=== PATIENT | male | born 1940 | race Caucasian/White ===

== ENCOUNTER 2018-08-05 09:16 | Inpatient (IN) | payer MEDICARE, OTHER ==
[~2018-08-05] VITALS: Ht 172.7 cm; Wt 73.6 kg
[2018-08-05] MEDS ORDERED: albuterol 2.5 MG/3 ML nebule NEB ONE (09:30)
[2018-08-05] MEDS ORDERED: methylPREDNISolone sod succ 125mg/2ml vial IV ONE (09:30)
[2018-08-05] MEDS ORDERED: ipratropium/albuterol 3ml nebule NEB ONE (09:30)
[2018-08-05 10:20] LABS: BASOPHILS % (AUTO) 0.3 % (0-1); EOSINOPHILS % (AUTO) 0.2 % (0-6); HEMATOCRIT 41.6 % (42.0-52.0); HEMOGLOBIN 13.6 g/dl (14.0-17.9); LYMPHOCYTES # (AUTO) 0.5 X10'3 (1.1-4.8); LYMPHOCYTES % (AUTO) 3.9 % (21-51); MEAN CORPUSCULAR HEMOGLOBIN 29.9 PG (27.0-31.0); MEAN CORPUSCULAR HGB CONC 32.6 g/dL (33.0-36.5); MEAN CORPUSCULAR VOLUME 91.8 FL (78-98); MONOCYTES # (AUTO) 1.7 X10'3 (0-0.9); MONOCYTES % (AUTO) 14.2 % (2-12); NEUTROPHILS # (AUTO) 9.8 X10'3 (1.8-7.7); NEUTROPHILS % (AUTO) 81.4 % (42-75); PLATELET COUNT 190 X10'3 (140-440); RED BLOOD COUNT 4.53 X10'6 (4.70-6.10); RED CELL DISTRIBUTION WIDTH 15.1 % (11.5-14.5)
[2018-08-05] MEDS ORDERED: CefTRIAXone 2gm/D5W 50ml 50 ML IV ONE (10:45)
[2018-08-05 10:46] LABS: INR 1.1 INR; PARTIAL THROMBOPLASTIN TIME 28 SECONDS (22-32); PROTHROMBIN TIME 10.7 SECONDS (9.0-12.0)
[2018-08-05 10:48] LABS: ALANINE AMINOTRANSFERASE 27 U/L (12-78); ALBUMIN 2.8 G/DL (3.4-5.0); ALBUMIN/GLOBULIN RATIO 0.6 (1.1-1.5); ALKALINE PHOSPHATASE 127 IU/L (46-116); ANION GAP 5 (8-16); ASPARTATE AMINO TRANSFERASE 26 U/L (10-37); BILIRUBIN,TOTAL 0.4 MG/DL (0.1-1.0); BLOOD UREA NITROGEN 14 MG/DL (7-18); BUN/CREATININE RATIO 14.9 (5.4-32.0); CHLORIDE 102 MMOL/L (99-107); CREATININE 0.94 MG/DL (0.60-1.10); GLUCOSE 116 MG/DL (70-104); POTASSIUM 3.5 MMOL/L (3.5-5.1); SODIUM 139 MMOL/L (135-145); TOTAL CARBON DIOXIDE 31.8 MMOL/L (24-32); TOTAL PROTEIN 7.3 G/DL (6.4-8.2); eGFR 77 ML/MIN
[2018-08-05] MEDS ORDERED: furosemide 10 MG/1 ML 10ml inj IV ONE (10:55)
[2018-08-05] MEDS ORDERED: ondansetron/PF 4mg/2ml inj IV PRN (11:15)
[2018-08-05] MEDS ORDERED: mag hydrox/Alum hydrox/simeth 30ml oral suspension PO PRN (11:15)
[2018-08-05] MEDS ORDERED: magnesium 2GM in 50ml NS 50 ML IV PRN (11:15)
[2018-08-05] MEDS ORDERED: ipratropium/albuterol 3ml nebule NEB PRN (11:15)
[2018-08-05] MEDS ORDERED: potassium Cl 20 mEq SR tablet PO PRN ×2 (11:15)
[2018-08-05] MEDS ORDERED: magnesium Cl slow-release 64mg tablet PO PRN (11:15)
[2018-08-05] MEDS ORDERED: potassium Cl 40MEQ/NS 500ml 500 ML IV PRN ×2 (11:15)
[2018-08-05] MEDS ORDERED: magnesium 4gm in 100ml NS 100 ML IV PRN (11:15)
[2018-08-05] MEDS ORDERED: acetaminophen 325mg tablet PO PRN ×2 (11:15)
[2018-08-05] MEDS ORDERED: LEVO125T PO (11:52)
[2018-08-05] MEDS ORDERED: METO-467 PO (11:52)
[2018-08-05] MEDS ORDERED: ASPI-1265 PO (11:52)
[2018-08-05] MEDS ORDERED: ATOR40TA PO (11:52)
[2018-08-05] MEDS ORDERED: MULT1TAB74 PO (11:52)
[2018-08-05] MEDS ORDERED: BUDE10.2 INH (11:52)
[2018-08-05] MEDS ORDERED: FURO-150 PO (11:52)
[2018-08-05 13:05] VITALS: BP 154/83
--- NOTE | 2018-08-05 13:05 | NUR ---
RECEIVED REPORT LAUREANO BLAKE VIA TELEPHONE. RECEIVED PT VIA [facility] . DENIES PAIN, DIZZINESS. DOES APPEAR SOB. VS STABLE.
[2018-08-05] MEDS ORDERED: AMLO2.5T2 PO (14:00)
[2018-08-05] MEDS ORDERED: FLUT16SP2 BOTHNARES (14:00)
[2018-08-05] MEDS ORDERED: LOSA50TA64 PO (14:00)
[2018-08-05 15:00] VITALS: BP 151/92
[2018-08-05] MEDS: ipratropium/albuterol 3ml nebule NEB SCH ×3 (15:03→23:50)
--- NOTE | 2018-08-05 16:22 | NUR ---
PAGED ECHO:[id number], IS ECHO GOING TO BE PERFORMED TODAY? [place] 2667. TY.
--- NOTE | 2018-08-05 16:24 | NUR ---
[employer] CALLED, WILL BE HERE IN ABOUT 5 MINUTES FOR ECHO.
--- NOTE | 2018-08-05 18:21 | NUR ---
Problems reprioritized. Patient report given, questions answered & plan of care reviewed with BIBIANA MCCARTY RN.
--- NOTE | 2018-08-05 18:30 | NUR ---
Patient in room PCU 3028. I have received report from SHMUEL TINSLEY and had the opportunity to ask questions and assume patient care.
[2018-08-05 19:00] VITALS: BP 155/69
[2018-08-05] MEDS ORDERED: furosemide 10 MG/1 ML 10ml inj IV SCH (20:00)
[2018-08-05] MEDS: lactobacillus rhamnosus 10,000 MMU CELLS/CAPSULE PO SCH (20:16)
[2018-08-05 23:00] VITALS: BP 154/75
[2018-08-06 03:00] VITALS: BP 145/75
[2018-08-06] MEDS: ipratropium/albuterol 3ml nebule NEB SCH ×5 (03:29→19:00)
[2018-08-06 04:59] LABS: BASOPHILS % (AUTO) 0.2 % (0-1); EOSINOPHILS % (AUTO) 0 % (0-6); LYMPHOCYTES # (AUTO) 0.3 X10'3 (1.1-4.8); LYMPHOCYTES % (AUTO) 2.3 % (21-51); MEAN CORPUSCULAR HEMOGLOBIN 30.2 PG (27.0-31.0); MEAN CORPUSCULAR HGB CONC 32.6 g/dL (33.0-36.5); MEAN CORPUSCULAR VOLUME 92.6 FL (78-98); MEAN PLATELET VOLUME 9.8 FL (7.4-10.4); MONOCYTES # (AUTO) 0.6 X10'3 (0-0.9); MONOCYTES % (AUTO) 4.8 % (2-12); NEUTROPHILS # (AUTO) 11.2 X10'3 (1.8-7.7); NEUTROPHILS % (AUTO) 92.7 % (42-75); PLATELET COUNT 210 X10'3 (140-440); RED BLOOD COUNT 4.32 X10'6 (4.70-6.10); WHITE BLOOD COUNT 12.1 X10'3 (4.5-11.0)
[2018-08-06 05:16] LABS: ALBUMIN 2.6 G/DL (3.4-5.0); ANION GAP 6 (8-16); BLOOD UREA NITROGEN 24 MG/DL (7-18); BUN/CREATININE RATIO 19.7 (5.4-32.0); CALCIUM 8.7 MG/DL (8.5-10.1); CHLORIDE 100 MMOL/L (99-107); CREATININE 1.22 MG/DL (0.60-1.10); GLUCOSE 144 MG/DL (70-104); MAGNESIUM 1.9 MG/DL (1.5-2.4); POTASSIUM 3.6 MMOL/L (3.5-5.1); SODIUM 140 MMOL/L (135-145); TOTAL CARBON DIOXIDE 33.8 MMOL/L (24-32); eGFR 57 ML/MIN
[2018-08-06 06:00] VITALS: BP 157/78
--- NOTE | 2018-08-06 06:25 | NUR ---
Patient in room PCU 3028. I have received report from Kailyn Avina RN and had the opportunity to ask questions and assume patient care.
--- NOTE | 2018-08-06 06:28 | NUR ---
Problems reprioritized. Patient report given, questions answered & plan of care reviewed with [place] RN.
[2018-08-06] MEDS ORDERED: predniSONE 20 mg tablet PO SCH ×2 (08:00→20:15)
[2018-08-06] MEDS ORDERED: enoxaparin 40mg/0.4ml syringe SQ SCH (08:00)
[2018-08-06] MEDS: K and/or MAG REPLACEMENT MC SCH (08:00)
[2018-08-06] MEDS: atorvastatin 20mg tablet PO SCH (08:05)
[2018-08-06] MEDS: furosemide 40mg/4ml inj IV SCH ×2 (08:06→21:08)
[2018-08-06] MEDS: lactobacillus rhamnosus 10,000 MMU CELLS/CAPSULE PO SCH ×2 (08:07→21:09)
[2018-08-06] MEDS: metoprolol tartrate 50mg tablet PO SCH ×2 (08:07→21:09)
[2018-08-06] MEDS: multivitamins, therapeutics tablet PO SCH ×2 (08:07→21:08)
[2018-08-06] MEDS: aspirin 81mg tab.chew PO SCH (08:07)
[2018-08-06] MEDS: amLODIPine 5mg tablet PO SCH (08:08)
[2018-08-06] MEDS: levoTHYROXINE 125mcg tablet PO SCH (08:08)
[2018-08-06] MEDS: CefTRIAXone 2gm/D5W 50ml 50 ML IV SCH (08:09)
[2018-08-06] MEDS: losartan 50mg tablet PO SCH (08:27)
[2018-08-06 11:00] VITALS: BP 147/101
--- NOTE | 2018-08-06 11:01 | NUR ---
PAGER ID: [phone] MESSAGE: DR. SANDERS, 6352X/SUNITA,HX AFIB,IN AFIB. NOT ON ANTICOAG.AM GLUCOSE 144.DO A1C?YELLOW COLORED SPUTUM,WANT CX?NEED PRN PAIN TREATMENT/ANTIANXIETY TREATMENT? [place] MARIA AND SHAKA 3388/8618.
[2018-08-06] MEDS ORDERED: LIDOcaine/PRILOcaine 5gm cream TP PRN (11:10)
--- NOTE | 2018-08-06 12:35 | NUR ---
PAGER ID: [phone] MESSAGE: RE: Simba Miguel, 4223H. Critical Trop 2.33 -[facility] #[id number] Carlin concerning Pts elevated troponin levels
[2018-08-06] MEDS ORDERED: enoxaparin 50mg/0.5ml (from 3ml vial) syringe SUBCUT SCH (12:50)
[2018-08-06] MEDS ORDERED: albuterol 2.5 MG/3 ML nebule NEB PRN (13:55)
--- NOTE | 2018-08-06 14:31 | NUR ---
PAGED RT: [id number] HAS 2 NEW RT ORDERS. [place] 2486/5441. TY.
[2018-08-06] MEDS ORDERED: LORazepam 2 mg/ml vial IV PRN (14:40)
[2018-08-06] MEDS ORDERED: LORazepam 0.5 MG tablet PO PRN (14:40)
[2018-08-06 15:00] VITALS: BP 138/63
--- NOTE | 2018-08-06 15:53 | NUR ---
PAGER ID: [phone] MESSAGE: DR. SANDERS, 3028A/SUNITA, TROP 6.49. [place] 2243/6573.
--- NOTE | 2018-08-06 16:11 | NUR ---
PAGER ID: [phone] MESSAGE: DR. SANDERS, [id number]/SUNITA, PLEASE CONFIRM YOU RECEIVED THE MESSAGE REGARDING CRITICAL TROP OF 6.49. [place] MAR[place] 2988/0465.
[2018-08-06] MEDS: magnesium hydroxide 30ml (MOM) UD suspension PO PRN (17:54)
--- NOTE | 2018-08-06 18:30 | NUR ---
Patient in room PCU 3028. I have received report from Scott RN/Curly RN and had the opportunity to ask questions and assume patient care. at bedside, pt lying in bed eating dinner, in no distress/pain at this time. will continue to monitor.
--- NOTE | 2018-08-06 18:39 | NUR ---
STOCK CLERKaccounting assistant: I have reviewed and agree with all interventions, assessments performed and documented by LAUREANO MATT.
--- NOTE | 2018-08-06 18:40 | NUR ---
Problems reprioritized. Patient report given, questions answered & plan of care reviewed with LAUREANO COOLEY.
[2018-08-06 19:00] VITALS: BP 158/77
[2018-08-06] MEDS ORDERED: apixaban 5mg tablet PO SCH (20:00)
[2018-08-06] MEDS ORDERED: normal saline 1000ml 1,000 ML IV SCH (20:15)
--- NOTE | 2018-08-06 20:20 | NUR ---
Dr Magaañ at bedside, agreed to cath pt in AM, scheduled for 0900. [address] orders for 60mg PO prednisone x 1 tonight and again in AM at 0700, along with 100mg solu-cortef at 0700 d/t iodine allergy. will also start aggrastat gtt along with NS @ 75ml/hr, and decreased lovenox to 50mg subQ. pt to be NPO at midnight. orders placed, will implement when available.
[2018-08-06] MEDS: tirofiban 5mg in NS 100mL 100 ML IV SCH (21:08)
[2018-08-06] MEDS: enoxaparin 50mg/0.5ml (from 3ml vial) syringe SUBCUT SCH (21:14)
[2018-08-06 23:00] VITALS: BP 149/85
[2018-08-07] VITALS (13 sets, daily range): BP systolic 116–160; BP diastolic 66–90
[2018-08-07] MEDS: ipratropium/albuterol 3ml nebule NEB SCH ×7 (00:16→22:46)
[2018-08-07] MEDS: tirofiban 5mg in NS 100mL 100 ML IV SCH (04:00)
[2018-08-07 05:03] LABS: BASOPHILS % (AUTO) 0.2 % (0-1); EOSINOPHILS % (AUTO) 0 % (0-6); HEMATOCRIT 40.8 % (42.0-52.0); LYMPHOCYTES # (AUTO) 0.4 X10'3 (1.1-4.8); LYMPHOCYTES % (AUTO) 2.2 % (21-51); MEAN CORPUSCULAR HEMOGLOBIN 29.7 PG (27.0-31.0); MEAN CORPUSCULAR HGB CONC 31.9 g/dL (33.0-36.5); MEAN CORPUSCULAR VOLUME 93.2 FL (78-98); MEAN PLATELET VOLUME 9.5 FL (7.4-10.4); MONOCYTES # (AUTO) 0.7 X10'3 (0-0.9); MONOCYTES % (AUTO) 4.2 % (2-12); NEUTROPHILS % (AUTO) 93.4 % (42-75); PLATELET COUNT 250 X10'3 (140-440); RED BLOOD COUNT 4.38 X10'6 (4.70-6.10); RED CELL DISTRIBUTION WIDTH 15.4 % (11.5-14.5); WHITE BLOOD COUNT 16.1 X10'3 (4.5-11.0)
[2018-08-07 05:25] LABS: ALBUMIN 2.6 G/DL (3.4-5.0); ANION GAP 6 (8-16); BLOOD UREA NITROGEN 33 MG/DL (7-18); BUN/CREATININE RATIO 34.7 (5.4-32.0); CALCIUM 8.5 MG/DL (8.5-10.1); CHLORIDE 102 MMOL/L (99-107); CHOL/HDL RATIO 2.7 (0.00-4.99); CHOLESTEROL 83 MG/DL (0-200); CREATININE 0.95 MG/DL (0.60-1.10); GLUCOSE 134 MG/DL (70-104); HDL CHOLESTEROL 31 MG/DL (35-60); LDL CHOLESTEROL 50 MG/DL (50-100); MAGNESIUM 2.2 MG/DL (1.5-2.4); SODIUM 139 MMOL/L (135-145); TOTAL CARBON DIOXIDE 31.1 MMOL/L (24-32); TRIGLYCERIDES 69 MG/DL (20-135); eGFR 76 ML/MIN
--- NOTE | 2018-08-07 06:00 | NUR ---
Patient in room PCU 3028. I have received report from Dayanna TINSLEY and had the opportunity to ask questions and assume patient care.
--- NOTE | 2018-08-07 06:12 | NUR ---
Problems reprioritized. Patient report given, questions answered & plan of care reviewed with Scott RN/Curly RN.
[2018-08-07] MEDS ORDERED: hydrocortisone sod succ/PF 100mg/2ml inj. IV SCH (07:00)
[2018-08-07] MEDS: predniSONE 20 mg tablet PO SCH ×2 (07:12→08:00)
[2018-08-07] MEDS: K and/or MAG REPLACEMENT MC SCH (08:00)
--- NOTE | 2018-08-07 08:07 | NUR ---
PAGED RT:[id number], NEW ORDER FOR RT BEDSIDE SCREEN.PER MARILYN PARADA. TY. [place] 7406/2817.
[2018-08-07] MEDS: lactobacillus rhamnosus 10,000 MMU CELLS/CAPSULE PO SCH ×2 (08:09→22:43)
[2018-08-07] MEDS: aspirin 81mg tab.chew PO SCH (08:09)
[2018-08-07] MEDS: multivitamins, therapeutics tablet PO SCH ×2 (08:09→22:44)
[2018-08-07] MEDS: atorvastatin 20mg tablet PO SCH (08:10)
[2018-08-07] MEDS: metoprolol tartrate 50mg tablet PO SCH ×2 (08:10→22:44)
[2018-08-07] MEDS: amLODIPine 5mg tablet PO SCH (08:10)
[2018-08-07] MEDS: levoTHYROXINE 125mcg tablet PO SCH (08:10)
[2018-08-07] MEDS: losartan 50mg tablet PO SCH (08:10)
[2018-08-07] MEDS ORDERED: iohexol 350 MG/ML 50ML vial IV ONE (08:24)
[2018-08-07] MEDS ORDERED: iohexol 350MG/ML 100ml bottle IV ONE ×2 (08:24→09:14)
[2018-08-07] MEDS ORDERED: LIDOcaine 1% (10mg/ml)w/preservative injection 20ml MDV ONE (08:24)
[2018-08-07] MEDS ORDERED: fentaNYL/PF 50MCG/1 ML 2ML syringe ONE (08:45)
[2018-08-07] MEDS ORDERED: midazolam 2 mg/2 ml injection ONE (08:45)
[2018-08-07] MEDS: normal saline 1000ml 1,000 ML IV SCH ×2 (09:55→15:23)
--- NOTE | 2018-08-07 10:07 | NUR ---
PAGER ID: [phone] MESSAGE: DR. SANDERS, 0648U/SUNITA BACK FROM IMPROVEMENT ENGINEER. MEDICAL TREATMENT.DR. CHRISTENSEN WROTE IN ORDERS FOR YOU TO CHOOSE PLAVIX 75MG PO DAILY OR FACTOR XA LIZETTE FOR AFIB. [place] 5098/5427. TY
[2018-08-07] MEDS ORDERED: HYDROcodone/acetaminophen 5mg/325mg tablet PO PRN (10:15)
[2018-08-07] MEDS ORDERED: ondansetron/PF 4mg/2ml inj IV PRN (10:15)
[2018-08-07] MEDS ORDERED: morphine 4 MG/ML inj SYRINge IV PRN (10:15)
[2018-08-07] MEDS ORDERED: HYDROcodone/acetaminophen 10/325mg tab PO PRN (10:20)
[2018-08-07] MEDS ORDERED: OXAZEpam 15mg capsule PO PRN (10:20)
[2018-08-07] MEDS ORDERED: nitroGLYCERIN 0.4mg SUBLingual tab SL PRN (10:20)
[2018-08-07] MEDS ORDERED: proCHLORperazine 10 MG/2 ml inj IV PRN (10:20)
[2018-08-07] MEDS: CefTRIAXone 2gm/D5W 50ml 50 ML IV SCH (10:38)
[2018-08-07] MEDS: furosemide 40mg/4ml inj IV SCH ×2 (10:38→22:42)
--- NOTE | 2018-08-07 11:45 | NUR ---
DEVELOPED QUARTER SIZED SANGUINEUS DRAINAGE ON 2X2 DRESSING. NOT SX OF HEMATOMA. APPLIED MAN PRESSURE, MONIQUE RN IN TO ASSESS. CALL TO lab animal technologist, spoke to terry solano. she is speaking to dr. ernst. told to apply man pressure x 5 minute and apply pressure dressing.
--- NOTE | 2018-08-07 13:21 | NUR ---
PAGER ID: [phone] MESSAGE: DR. SANDERS, 8313Z/SUNITA, DOES NOT REMEBER DR. CHRISTENSEN TELLING RESULTS OF CATH. NEED AN MD TO INFORM HIM PLEASE. DENIES DR. CHRISTENSEN TALKING TO HER. [place] MAR[place] 6823/4922.
[2018-08-07] MEDS: enoxaparin 50mg/0.5ml (from 3ml vial) syringe SUBCUT SCH (14:00)
--- NOTE | 2018-08-07 16:30 | NUR ---
removed pressure dressing from right groin. drainage on 2x2 has double in size last 4 hours. could not assess that r/t pressure dressing. no sx of hematoma or hemorrhage. new 2x2 dressing applied. continue to monitor. if no new drainage, will assist oob soon. discussed all with mark hough rn.
--- NOTE | 2018-08-07 17:05 | NUR ---
DR. CHRISTENSEN RETURNED PAGE. states"call the hospitalist".
--- NOTE | 2018-08-07 17:08 | NUR ---
PAGER ID: [phone] MESSAGE: DR. SANDERS, 4068O/SUNITA, PLEASE CALL [place] [facility] PLEASE. TY.
--- NOTE | 2018-08-07 17:17 | NUR ---
DR. SANDERS NOTIFIED OF OOZING/DRAINAGE FROM RIGHT GROIN CATH SITE. STATES "APPLY PRESSURE DRESSING. I WILL BE UP TO SEE SOON". PRESSURE DRESSING WAS ALREADY APPLIED. WILL REMAIN ON BEDREST TILL FURTHER ORDERS FROM
--- NOTE | 2018-08-07 18:30 | NUR ---
Problems reprioritized. Patient report given, questions answered & plan of care reviewed with LAUREANO ALVAREZ.
--- NOTE | 2018-08-07 18:50 | NUR ---
INTERNAL REVIEW AND AUDIT COMPLIANCEsolution sales senior executive: I have reviewed and agree with all interventions, assessments performed and documented by LAUREANO MATT.
[2018-08-07] MEDS ORDERED: ACETYLCYSTEINE 200 MG/1 ML 4 ML ORAL SOLUTION PO SCH (20:00)
[2018-08-07] MEDS: magnesium hydroxide 30ml (MOM) UD suspension PO PRN (23:05)
[2018-08-08 02:00] VITALS: BP 141/86
[2018-08-08] MEDS: ipratropium/albuterol 3ml nebule NEB SCH ×6 (02:58→23:37)
[2018-08-08 04:43] LABS: BASOPHILS % (AUTO) 0.1 % (0-1); EOSINOPHILS % (AUTO) 0 % (0-6); HEMATOCRIT 41.4 % (42.0-52.0); HEMOGLOBIN 13.5 g/dl (14.0-17.9); LYMPHOCYTES # (AUTO) 0.8 X10'3 (1.1-4.8); LYMPHOCYTES % (AUTO) 4.4 % (21-51); MEAN CORPUSCULAR HGB CONC 32.5 g/dL (33.0-36.5); MEAN CORPUSCULAR VOLUME 92.2 FL (78-98); MEAN PLATELET VOLUME 9.1 FL (7.4-10.4); MONOCYTES # (AUTO) 1.9 X10'3 (0-0.9); MONOCYTES % (AUTO) 10.9 % (2-12); NEUTROPHILS # (AUTO) 14.4 X10'3 (1.8-7.7); NEUTROPHILS % (AUTO) 84.6 % (42-75); PLATELET COUNT 252 X10'3 (140-440); RED BLOOD COUNT 4.49 X10'6 (4.70-6.10); RED CELL DISTRIBUTION WIDTH 15.7 % (11.5-14.5)
[2018-08-08 04:58] LABS: ALBUMIN 2.6 G/DL (3.4-5.0); ANION GAP 2 (8-16); BLOOD UREA NITROGEN 32 MG/DL (7-18); CALCIUM 9.2 MG/DL (8.5-10.1); CHLORIDE 103 MMOL/L (99-107); CREATININE 0.94 MG/DL (0.60-1.10); GLUCOSE 95 MG/DL (70-104); MAGNESIUM 2.3 MG/DL (1.5-2.4); POTASSIUM 3.6 MMOL/L (3.5-5.1); SODIUM 142 MMOL/L (135-145); TOTAL CARBON DIOXIDE 36.6 MMOL/L (24-32); eGFR 77 ML/MIN
--- NOTE | 2018-08-08 06:37 | NUR ---
Patient in room PCU 3028. I have received report from Carolyn TINSLEY and had the opportunity to ask questions and assume patient care.
[2018-08-08 06:59] VITALS: BP 152/75
[2018-08-08] MEDS: furosemide 40mg/4ml inj IV SCH ×2 (07:34→21:07)
[2018-08-08] MEDS: CefTRIAXone 2gm/D5W 50ml 50 ML IV SCH (07:35)
[2018-08-08] MEDS: metoprolol tartrate 50mg tablet PO SCH ×2 (07:36→21:09)
[2018-08-08] MEDS: predniSONE 20 mg tablet PO SCH (07:36)
[2018-08-08] MEDS: atorvastatin 20mg tablet PO SCH (07:37)
[2018-08-08] MEDS: aspirin 81mg tab.chew PO SCH (07:37)
[2018-08-08] MEDS: clopidogrel 75mg tablet PO SCH (07:37)
[2018-08-08] MEDS: amLODIPine 5mg tablet PO SCH (07:37)
[2018-08-08] MEDS: losartan 50mg tablet PO SCH (07:37)
[2018-08-08] MEDS: multivitamins, therapeutics tablet PO SCH ×2 (07:38→21:09)
[2018-08-08] MEDS: levoTHYROXINE 125mcg tablet PO SCH (07:38)
[2018-08-08] MEDS: lactobacillus rhamnosus 10,000 MMU CELLS/CAPSULE PO SCH ×2 (07:38→21:08)
[2018-08-08] MEDS: K and/or MAG REPLACEMENT MC SCH (08:00)
[2018-08-08 10:22] LABS: PLATELET ESTIMATE NORMAL; TOTAL CELLS COUNTED 100
[2018-08-08 10:23] LABS: ANISOCYTOSIS FEW; TOXIC GRANULATION 2+
[2018-08-08 11:00] VITALS: BP 131/70
[2018-08-08] MEDS: salt irrigation nasal spray 45 ML SPRAY NS SCH ×3 (12:29→21:11)
[2018-08-08] MEDS: montelukast 10mg tablet PO SCH (12:29)
[2018-08-08 15:00] VITALS: BP 120/70
[2018-08-08 18:00] VITALS: BP 136/72
--- NOTE | 2018-08-08 18:13 | NUR ---
Patient in room PCU 3028. I have received report from Jacqueline TINSLEY and had the opportunity to ask questions and assume patient care. Bedside report complete, patient stable at transfer of care.
--- NOTE | 2018-08-08 18:14 | NUR ---
Orientee documentation: I have reviewed and agree with all interventions, assessments performed and documented by Kim TINSLEY. [place]ee Medication Administration: For this medication-pass time frame, all medication were reviewed, dispensed, administered and documented per hospital policy by Kim TINSLEY.
--- NOTE | 2018-08-08 18:15 | NUR ---
Patient in room PCU 3028. I have received report from Donta TINSLEY and had the opportunity to ask questions and assume patient care. pt is eating dinner, AAO, pleasant
[2018-08-08] MEDS: apixaban 5mg tablet PO SCH (21:08)
[2018-08-08 23:00] VITALS: BP 140/79
[2018-08-09] MEDS: ipratropium/albuterol 3ml nebule NEB SCH ×3 (02:42→11:14)
[2018-08-09 03:00] VITALS: BP 145/90
[2018-08-09] MEDS: salt irrigation nasal spray 45 ML SPRAY NS SCH ×3 (03:21→11:00)
[2018-08-09 05:54] LABS: ALBUMIN 2.7 G/DL (3.4-5.0); ANION GAP 2 (8-16); BLOOD UREA NITROGEN 32 MG/DL (7-18); BUN/CREATININE RATIO 30.8 (5.4-32.0); CALCIUM 8.6 MG/DL (8.5-10.1); CHLORIDE 101 MMOL/L (99-107); CREATININE 1.04 MG/DL (0.60-1.10); GLUCOSE 86 MG/DL (70-104); MAGNESIUM 2.2 MG/DL (1.5-2.4); POTASSIUM 3.9 MMOL/L (3.5-5.1); SODIUM 144 MMOL/L (135-145); eGFR 69 ML/MIN
[2018-08-09 05:57] LABS: BASOPHILS % (AUTO) 0.1 % (0-1); EOSINOPHILS % (AUTO) 0.1 % (0-6); HEMATOCRIT 39.6 % (42.0-52.0); HEMOGLOBIN 12.9 g/dl (14.0-17.9); LYMPHOCYTES # (AUTO) 0.9 X10'3 (1.1-4.8); LYMPHOCYTES % (AUTO) 6.5 % (21-51); MEAN CORPUSCULAR HGB CONC 32.7 g/dL (33.0-36.5); MEAN CORPUSCULAR VOLUME 91.8 FL (78-98); MEAN PLATELET VOLUME 8.9 FL (7.4-10.4); MONOCYTES # (AUTO) 1.7 X10'3 (0-0.9); MONOCYTES % (AUTO) 12.1 % (2-12); NEUTROPHILS # (AUTO) 11.3 X10'3 (1.8-7.7); NEUTROPHILS % (AUTO) 81.2 % (42-75); PLATELET COUNT 288 X10'3 (140-440); RED BLOOD COUNT 4.31 X10'6 (4.70-6.10); RED CELL DISTRIBUTION WIDTH 15.2 % (11.5-14.5)
--- NOTE | 2018-08-09 06:05 | NUR ---
Patient in room PCU 3028. I have received report from Jacqueline TINSLEY and had the opportunity to ask questions and assume patient care. Will continue to monitor patient.
--- NOTE | 2018-08-09 06:09 | NUR ---
Problems reprioritized. Patient report given, questions answered & plan of care reviewed with Donta TINSLEY.
[2018-08-09 06:34] LABS: TOTAL CARBON DIOXIDE 40.8 MMOL/L (24-32)
[2018-08-09 07:00] VITALS: BP 157/86
[2018-08-09 07:07] LABS: TOTAL CELLS COUNTED 100
[2018-08-09 07:08] LABS: PLATELET ESTIMATE NORMAL
--- NOTE | 2018-08-09 07:48 | NUR ---
Sent page to Dr. Carlin: 'PAGER ID: [phone] MESSAGE: [id number] Myriam Simba: Critical CO2 40.8, was 36.6 yesterday. Still requiring O2. Thank you, Lulu [phone]
[2018-08-09] MEDS: K and/or MAG REPLACEMENT MC SCH (08:00)
[2018-08-09] MEDS: lactobacillus rhamnosus 10,000 MMU CELLS/CAPSULE PO SCH (08:05)
[2018-08-09] MEDS: furosemide 40mg/4ml inj IV SCH (08:05)
[2018-08-09] MEDS: apixaban 5mg tablet PO SCH (08:05)
[2018-08-09] MEDS: levoTHYROXINE 125mcg tablet PO SCH (08:06)
[2018-08-09] MEDS: aspirin 81mg tab.chew PO SCH (08:06)
[2018-08-09] MEDS: atorvastatin 20mg tablet PO SCH (08:06)
[2018-08-09] MEDS: clopidogrel 75mg tablet PO SCH (08:06)
[2018-08-09] MEDS: predniSONE 20 mg tablet PO SCH (08:07)
[2018-08-09] MEDS: montelukast 10mg tablet PO SCH (08:07)
[2018-08-09] MEDS: multivitamins, therapeutics tablet PO SCH (08:07)
[2018-08-09] MEDS: metoprolol tartrate 50mg tablet PO SCH (08:07)
[2018-08-09] MEDS: CefTRIAXone 2gm/D5W 50ml 50 ML IV SCH (08:08)
[2018-08-09] MEDS: amLODIPine 5mg tablet PO SCH (08:08)
[2018-08-09] MEDS: losartan 50mg tablet PO SCH (08:08)
[2018-08-09 09:06] LABS: ABG BASE EXCESS 11.1 mmol/L (-2.0-3.0); ABG HCO3 36.5 mmol/L (22.0-26.0); ABG OXYGEN SATURATION 92.5 % (95-98); ABG PCO2 (T) 50.6 mmHg (35.0-48.0); ABG PH (T) 7.476 (7.350-7.450); ABG PO2 (T) 62.8 mmHg (83-108); ALLEN'S TEST Positive; FCOHb 0.3 % (0.5-1.5); FLOW 2 L/min; FMetHb 0.1 % (0.3-1.12); FO2Hb 92.1 % (94-100); TOTAL HEMOGLOBIN 13.8 G/dl (14.0-18.0)
[2018-08-09 11:00] VITALS: BP 144/70
--- NOTE | 2018-08-09 12:15 | NUR ---
O2 Sat at rest on room air:__86_% If below 89%: Recovery O2 Sat at rest on __2_LPM:__93_%:__91_% via NC (mask/nasal cannula, etc..) No further documentation is necessary. If O2 Sat did not drop below 89% on room air,ambulate patient on room air. O2 Sat while ambulating on room air:___% Recovery O2 Sat while ambulating on ___LPM:___% No further documentation is necessary. If patient does not drop below 89% while ambulating, he/she does not qualify for home O2.
[2018-08-09] MEDS ORDERED: APIX5TAB3 PO (13:52)
[2018-08-09] MEDS ORDERED: PRED20TA PO (13:52)
[2018-08-09] MEDS ORDERED: DOXY-1 PO (13:52)
[2018-08-09] MEDS ORDERED: MONT10TA24 PO (13:52)
[2018-08-09] MEDS ORDERED: FURO40TA4 PO (13:52)
== END 2018-08-09 14:51 | disposition home or self-care (01) | DRG 280 ==
LOC: ER 09:17 → ED HOLD 11:15 → PCU 3S 13:18
PROVIDERS: ADMIT Hospitalist; ATTEND Family Medicine
PROC: 4A023N7 Measurement of Cardiac Sampling and Pressure, Left Heart, Percutaneous Approach (ICD-10-PCS; principal; 2018-08-07)
PROC: B2111ZZ Fluoroscopy of Multiple Coronary Arteries using Low Osmolar Contrast (ICD-10-PCS; 2018-08-07)
PROC: B2151ZZ Fluoroscopy of Left Heart using Low Osmolar Contrast (ICD-10-PCS; 2018-08-07)
PROC: B2181ZZ Fluoroscopy of Left Internal Mammary Bypass Graft using Low Osmolar Contrast (ICD-10-PCS; 2018-08-07)
PROC: B2171ZZ Fluoroscopy of Right Internal Mammary Bypass Graft using Low Osmolar Contrast (ICD-10-PCS; 2018-08-07)
PROC: B2121ZZ Fluoroscopy of Single Coronary Artery Bypass Graft using Low Osmolar Contrast (ICD-10-PCS; 2018-08-07)
DX: I21.4 Non-ST elevation (NSTEMI) myocardial infarction (principal); J96.01 Acute respiratory failure with hypoxia; R65.11 Systemic inflammatory response syndrome (SIRS) of non-infectious origin with acute organ dysfunction; I50.43 Acute on chronic combined systolic (congestive) and diastolic (congestive) heart failure; J44.1 Chronic obstructive pulmonary disease with (acute) exacerbation; E87.3 Alkalosis; I45.2 Bifascicular block; E78.00 Pure hypercholesterolemia, unspecified; E78.5 Hyperlipidemia, unspecified; F17.210 Nicotine dependence, cigarettes, uncomplicated; F41.1 Generalized anxiety disorder; H35.30 Unspecified macular degeneration; I11.0 Hypertensive heart disease with heart failure; I25.10 Atherosclerotic heart disease of native coronary artery without angina pectoris; K80.20 Calculus of gallbladder without cholecystitis without obstruction; L20.9 Atopic dermatitis, unspecified; M10.9 Gout, unspecified; I49.3 Ventricular premature depolarization; I48.0 Paroxysmal atrial fibrillation; G25.0 Essential tremor; K21.9 Gastro-esophageal reflux disease without esophagitis; Z79.01 Long term (current) use of anticoagulants; Z79.02 Long term (current) use of antithrombotics/antiplatelets; Z79.890 Hormone replacement therapy; Z88.8 Allergy status to other drugs, medicaments and biological substances; Z91.041 Radiographic dye allergy status; Z79.82 Long term (current) use of aspirin; Z79.899 Other long term (current) drug therapy; Z85.6 Personal history of leukemia; Z86.79 Personal history of other diseases of the circulatory system; Z95.1 Presence of aortocoronary bypass graft
CPT/HCPCS: 36415; 36600; 71045; 80048; 80053; 80061; 82803; 82948; 83605; 83735; 83880; 84443; 84484; 85018; 85025; 85610; 85730; 87040; 87070; 90662; 93005; 93306; 93459; 94010; 94640; 94667; 94668; 94760; 96365; 96375; 99152; 99153; 99285; A4620; A6257; C1760; C1769; G0378; J0696; J1644; J1650; J1720; J1940; J2001; J2250; J2930; J3010; J3246; J7030; J7512; Q9967

== ENCOUNTER 2021-04-13 14:06 | Inpatient (IN) | payer OTHER, MEDICARE ==
[~2021-04-13] VITALS: Ht 172.7 cm; Wt 73.6 kg
[~2021-04-13 14:06] MED LIST: ALBU8.5H17 IH; AMLO2.5T2 PO; APIX5TAB3 PO; ASPI-1071 PO; ATOR40TA PO; BUDE10.2 INH; CHLO25TA11 PO; CHOL20004 PO; CLOP75TA34 PO; GABA-530 PO; HYDR71PA TP; IPRA3AMP9 IH; LEVO125T PO; METO-467 PO; MULT-620 PO; [UNRECOGNIZED DRUG - CODE] TP; tamsulosin capsule PO
[2021-04-13 14:44] LABS: BASOPHILS % (AUTO) 0.5 % (0-1); EOSINOPHILS # (AUTO) 0.3 X10'3 (0-0.9); EOSINOPHILS % (AUTO) 3.2 % (0-6); HEMATOCRIT 31.2 % (42.0-52.0); HEMOGLOBIN 9.9 g/dl (14.0-17.9); LYMPHOCYTES # (AUTO) 0.6 X10'3 (1.1-4.8); LYMPHOCYTES % (AUTO) 6.5 % (21-51); MEAN CORPUSCULAR HEMOGLOBIN 28.9 PG (27.0-31.0); MEAN CORPUSCULAR HGB CONC 31.9 g/dL (33.0-36.5); MEAN CORPUSCULAR VOLUME 90.5 FL (78-98); MEAN PLATELET VOLUME 8.9 FL (7.4-10.4); MONOCYTES # (AUTO) 1.1 X10'3 (0-0.9); MONOCYTES % (AUTO) 11.9 % (2-12); NEUTROPHILS # (AUTO) 7.3 X10'3 (1.8-7.7); NEUTROPHILS % (AUTO) 77.9 % (42-75); PLATELET COUNT 219 X10'3 (140-440); RED BLOOD COUNT 3.45 X10'6 (4.70-6.10); RED CELL DISTRIBUTION WIDTH 18.4 % (11.5-14.5); WHITE BLOOD COUNT 9.3 X10'3 (4.5-11.0)
[2021-04-13 14:57] LABS: ALANINE AMINOTRANSFERASE 33 U/L (12-78); ALBUMIN 2.7 G/DL (3.4-5.0); ALBUMIN/GLOBULIN RATIO 0.8 (1.1-1.5); ALKALINE PHOSPHATASE 121 IU/L (46-116); ANION GAP 7 (8-16); BILIRUBIN,TOTAL 0.4 MG/DL (0.1-1.0); BLOOD UREA NITROGEN 24 MG/DL (7-18); BUN/CREATININE RATIO 22.9 (5.4-32.0); CALCIUM 7.8 MG/DL (8.5-10.1); CHLORIDE 108 MMOL/L (99-107); CREATININE 1.05 MG/DL (0.60-1.10); GLUCOSE 104 MG/DL (70-104); SODIUM 144 MMOL/L (135-145); TOTAL CARBON DIOXIDE 28.8 MMOL/L (24-32); TOTAL PROTEIN 6.3 G/DL (6.4-8.2); eGFR 68 ML/MIN
[2021-04-13 15:05] LABS: ASPARTATE AMINO TRANSFERASE 34 U/L (10-37); MAGNESIUM 2.2 MG/DL (1.5-2.4)
--- NOTE | 2021-04-13 16:06 | NUR ---
RASHES THRU OUT BODY. GOT PNEUMONIA IN NOVEMBER AND REACTED TO ANTIBOTIC AND SINCE THEN RASHES OCCURRED.
[2021-04-13] MEDS ORDERED: FURO20TA4 PO (16:10)
[2021-04-13] MEDS ORDERED: LOSA50TA3 PO (16:10)
[2021-04-13] MEDS ORDERED: FURO40TA4 PO (16:10)
[2021-04-13] MEDS ORDERED: APIX5TAB3 PO (16:23)
[2021-04-13] MEDS ORDERED: GABA300C PO (16:23)
--- NOTE | 2021-04-13 17:14 | NUR ---
PT'S FRIEND YAEL GUO CALLED TO TALK W/ PT. HER NUMBER IS [phone].
[2021-04-13] MEDS ORDERED: morphine 2 MG/ML inj. syringe IV PRN ×2 (17:55)
[2021-04-13] MEDS ORDERED: magnesium 4gm in 100ml NS 100 ML IV PRN (17:55)
[2021-04-13] MEDS ORDERED: potassium Cl 20 mEq SR tablet PO PRN ×2 (17:55)
[2021-04-13] MEDS ORDERED: acetaminophen 325mg tablet PO PRN ×2 (17:55)
[2021-04-13] MEDS ORDERED: ondansetron/PF 4mg/2ml inj IV PRN (17:55)
[2021-04-13] MEDS ORDERED: magnesium hydroxide 30ml (MOM) UD suspension PO PRN (17:55)
[2021-04-13] MEDS ORDERED: magnesium 2GM in 50ml NS 50 ML IV PRN (17:55)
[2021-04-13] MEDS ORDERED: HYDROcodone/acetaminophen 10/325mg tab PO PRN (17:55)
[2021-04-13] MEDS ORDERED: magnesium Cl slow-release 64mg tablet PO PRN (17:55)
[2021-04-13] MEDS ORDERED: HYDROcodone/acetaminophen 5mg/325mg tablet PO PRN (17:55)
[2021-04-13] MEDS ORDERED: mag hydrox/Alum hydrox/simeth 30ml oral suspension PO PRN (17:55)
[2021-04-13] MEDS ORDERED: potassium CL 10mEq/100ml bag 100 ML IV PRN (17:55)
[2021-04-13] MEDS: budesonide 0.5mg/2ml UD nebule IH SCH (18:49)
[2021-04-13] MEDS: albuterol 2.5 MG/3 ML nebule NEB PRN (18:49)
[2021-04-13] MEDS: K and/or MAG REPLACEMENT MC SCH (20:27)
[2021-04-13] MEDS ORDERED: ipratropium/albuterol 3ml nebule IH SCH (21:00)
[2021-04-13] MEDS: docusate sod 100mg capsule PO SCH (22:20)
[2021-04-13] MEDS: furosemide 40mg/4ml inj IV SCH (22:47)
[2021-04-13] MEDS: apixaban 5mg tablet PO SCH (22:52)
[2021-04-13] MEDS: gabapentin 300mg capsule PO SCH (22:52)
[2021-04-13] MEDS: metoprolol tartrate 50mg tablet PO SCH (22:52)
[2021-04-13] MEDS: multivitamins, therapeutics tablet PO SCH (22:53)
--- NOTE | 2021-04-13 23:20 | NUR ---
Patient came up to floor via dannyrdagmar, report received from Juan Miguel TINSLEY from ED. Bed placed in locked and low position. Call light within reach and educated on.
[2021-04-13 23:39] VITALS: BP 117/48
[2021-04-14] MEDS: diphenhydrAMINE 25mg capsule PO PRN ×3 (02:32→22:23)
[2021-04-14 03:00] VITALS: BP 112/52
[2021-04-14 03:05] LABS: GLUCOSE 88 MG/DL (70-104)
[2021-04-14 03:06] LABS: ALBUMIN 2.8 G/DL (3.4-5.0); ANION GAP 9 (8-16); BLOOD UREA NITROGEN 24 MG/DL (7-18); BUN/CREATININE RATIO 20.9 (5.4-32.0); CALCIUM 8.1 MG/DL (8.5-10.1); CHLORIDE 108 MMOL/L (99-107); CREATININE 1.15 MG/DL (0.60-1.10); MAGNESIUM 2.2 MG/DL (1.5-2.4); POTASSIUM 4.8 MMOL/L (3.5-5.1); SODIUM 147 MMOL/L (135-145); TOTAL CARBON DIOXIDE 29.6 MMOL/L (24-32); eGFR 61 ML/MIN
[2021-04-14 06:13] LABS: BASOPHILS # (AUTO) 0.1 X10'3 (0-0.2); BASOPHILS % (AUTO) 0.6 % (0-1); EOSINOPHILS # (AUTO) 0.3 X10'3 (0-0.9); HEMATOCRIT 31.1 % (42.0-52.0); LYMPHOCYTES # (AUTO) 0.5 X10'3 (1.1-4.8); LYMPHOCYTES % (AUTO) 6.4 % (21-51); MEAN CORPUSCULAR HEMOGLOBIN 29.5 PG (27.0-31.0); MEAN CORPUSCULAR VOLUME 92.3 FL (78-98); MEAN PLATELET VOLUME 9.4 FL (7.4-10.4); MONOCYTES % (AUTO) 12.1 % (2-12); NEUTROPHILS # (AUTO) 6.3 X10'3 (1.8-7.7); NEUTROPHILS % (AUTO) 76.9 % (42-75); PLATELET COUNT 213 X10'3 (140-440); RED BLOOD COUNT 3.37 X10'6 (4.70-6.10); WHITE BLOOD COUNT 8.2 X10'3 (4.5-11.0)
--- NOTE | 2021-04-14 06:25 | NUR ---
Problems reprioritized. Patient report given, questions answered & plan of care reviewed with Asha TINSLEY.
[2021-04-14 07:00] VITALS: BP 124/48
[2021-04-14] MEDS: K and/or MAG REPLACEMENT MC SCH ×2 (08:00→20:00)
[2021-04-14] MEDS: apixaban 5mg tablet PO SCH ×2 (08:18→20:46)
[2021-04-14] MEDS: cholecalciferol (vitamin D3) 1,000 unit (25mcg) tablet PO SCH (08:18)
[2021-04-14] MEDS: levoTHYROXINE 125mcg tablet PO SCH (08:19)
[2021-04-14] MEDS: docusate sod 100mg capsule PO SCH ×2 (08:19→20:00)
[2021-04-14] MEDS: losartan 50mg tablet PO SCH (08:20)
[2021-04-14] MEDS: clopidogrel 75mg tablet PO SCH (08:21)
[2021-04-14] MEDS: multivitamins, therapeutics tablet PO SCH ×2 (08:21→20:46)
[2021-04-14] MEDS: metoprolol tartrate 50mg tablet PO SCH ×2 (08:21→20:46)
[2021-04-14] MEDS: amLODIPine 5mg tablet PO SCH (08:23)
[2021-04-14] MEDS: aspirin 81mg, enteric-coated 1 TAB TABLET.DR PO SCH (08:24)
[2021-04-14] MEDS: furosemide 40mg/4ml inj IV SCH ×2 (08:24→20:45)
[2021-04-14] MEDS: methylPREDNISolone sod succ 125mg/2ml vial IV SCH ×2 (08:33→20:45)
[2021-04-14] MEDS: budesonide 0.5mg/2ml UD nebule IH SCH ×2 (09:16→19:49)
[2021-04-14] MEDS: albuterol 2.5 MG/3 ML nebule NEB PRN (09:16)
[2021-04-14] MEDS: atorvastatin 20mg tablet PO SCH (09:57)
[2021-04-14 10:00] VITALS: BP 109/61
[2021-04-14] MEDS: ipratropium/albuterol 3ml nebule IH SCH ×3 (11:31→19:49)
[2021-04-14 16:09] VITALS: BP 130/73
[2021-04-14 18:00] VITALS: BP 131/51
--- NOTE | 2021-04-14 18:18 | NUR ---
Patient in room MED 318. I have received report from LAUREANO Blunt and had the opportunity to ask questions and assume patient care.
--- NOTE | 2021-04-14 18:18 | NUR ---
Problems reprioritized. Patient report given, questions answered & plan of care reviewed with LAUREANO Amaya.
[2021-04-14] MEDS: gabapentin 300mg capsule PO SCH (20:46)
[2021-04-14 22:00] VITALS: BP 115/43
[2021-04-15 02:00] VITALS: BP 111/50
--- NOTE | 2021-04-15 06:31 | NUR ---
Problems reprioritized. Patient report given, questions answered & plan of care reviewed with LAUREANO smith.
[2021-04-15 06:41] LABS: BASOPHILS % (AUTO) 0 % (0-1); EOSINOPHILS % (AUTO) 0 % (0-6); HEMOGLOBIN 9.5 g/dl (14.0-17.9); LYMPHOCYTES # (AUTO) 0.4 X10'3 (1.1-4.8); LYMPHOCYTES % (AUTO) 3.8 % (21-51); MEAN CORPUSCULAR HEMOGLOBIN 29.4 PG (27.0-31.0); MEAN CORPUSCULAR HGB CONC 32.7 g/dL (33.0-36.5); MEAN CORPUSCULAR VOLUME 89.8 FL (78-98); MEAN PLATELET VOLUME 8.9 FL (7.4-10.4); MONOCYTES # (AUTO) 0.3 X10'3 (0-0.9); MONOCYTES % (AUTO) 2.8 % (2-12); NEUTROPHILS # (AUTO) 8.9 X10'3 (1.8-7.7); NEUTROPHILS % (AUTO) 93.4 % (42-75); PLATELET COUNT 200 X10'3 (140-440); RED BLOOD COUNT 3.23 X10'6 (4.70-6.10); RED CELL DISTRIBUTION WIDTH 17.7 % (11.5-14.5); WHITE BLOOD COUNT 9.5 X10'3 (4.5-11.0)
[2021-04-15 06:55] LABS: ALBUMIN 2.7 G/DL (3.4-5.0); ANION GAP 6 (8-16); BLOOD UREA NITROGEN 32 MG/DL (7-18); BUN/CREATININE RATIO 21.9 (5.4-32.0); CALCIUM 8.4 MG/DL (8.5-10.1); CHLORIDE 105 MMOL/L (99-107); CREATININE 1.46 MG/DL (0.60-1.10); GLUCOSE 140 MG/DL (70-104); MAGNESIUM 2.1 MG/DL (1.5-2.4); POTASSIUM 4.9 MMOL/L (3.5-5.1); SODIUM 143 MMOL/L (135-145); TOTAL CARBON DIOXIDE 31.8 MMOL/L (24-32); eGFR 46 ML/MIN
[2021-04-15] MEDS: K and/or MAG REPLACEMENT MC SCH (08:00)
[2021-04-15] MEDS: amLODIPine 5mg tablet PO SCH (08:00)
[2021-04-15] MEDS: furosemide 40mg/4ml inj IV SCH (08:04)
[2021-04-15] MEDS: methylPREDNISolone sod succ 125mg/2ml vial IV SCH (08:04)
[2021-04-15 08:05] VITALS: BP_SYST 104
[2021-04-15] MEDS: multivitamins, therapeutics tablet PO SCH (08:05)
[2021-04-15] MEDS: losartan 50mg tablet PO SCH (08:05)
[2021-04-15] MEDS: cholecalciferol (vitamin D3) 1,000 unit (25mcg) tablet PO SCH (08:05)
[2021-04-15] MEDS: metoprolol tartrate 50mg tablet PO SCH (08:05)
[2021-04-15] MEDS: atorvastatin 20mg tablet PO SCH (08:06)
[2021-04-15] MEDS: docusate sod 100mg capsule PO SCH (08:06)
[2021-04-15] MEDS: aspirin 81mg, enteric-coated 1 TAB TABLET.DR PO SCH (08:06)
[2021-04-15] MEDS: apixaban 5mg tablet PO SCH (08:06)
[2021-04-15] MEDS: clopidogrel 75mg tablet PO SCH (08:06)
[2021-04-15] MEDS: levoTHYROXINE 125mcg tablet PO SCH (08:06)
[2021-04-15] MEDS: budesonide 0.5mg/2ml UD nebule IH SCH (08:22)
[2021-04-15] MEDS: ipratropium/albuterol 3ml nebule IH SCH (08:22)
[2021-04-15] MEDS ORDERED: PRED10TA23 PO (10:10)
== END 2021-04-15 11:00 | disposition home health service (06) | DRG 189 ==
LOC: ER 14:07 → ED HOLD 17:58 → MED 3N 23:22
PROVIDERS: ADMIT Internal Medicine; ATTEND Internal Medicine
DX: J96.21 Acute and chronic respiratory failure with hypoxia (principal); I21.A1 Myocardial infarction type 2; N17.9 Acute kidney failure, unspecified; I11.0 Hypertensive heart disease with heart failure; I48.0 Paroxysmal atrial fibrillation; I50.813 Acute on chronic right heart failure; E03.9 Hypothyroidism, unspecified; J44.9 Chronic obstructive pulmonary disease, unspecified; K21.9 Gastro-esophageal reflux disease without esophagitis; E78.5 Hyperlipidemia, unspecified; E78.00 Pure hypercholesterolemia, unspecified; F17.210 Nicotine dependence, cigarettes, uncomplicated; M10.9 Gout, unspecified; D64.9 Anemia, unspecified; T50.2X5A Adverse effect of carbonic-anhydrase inhibitors, benzothiadiazides and other diuretics, initial encounter; Z85.6 Personal history of leukemia; Z86.79 Personal history of other diseases of the circulatory system; Z79.01 Long term (current) use of anticoagulants; Z88.1 Allergy status to other antibiotic agents; Z88.8 Allergy status to other drugs, medicaments and biological substances; Z91.041 Radiographic dye allergy status; Z79.899 Other long term (current) drug therapy; Z79.82 Long term (current) use of aspirin; Z79.02 Long term (current) use of antithrombotics/antiplatelets
CPT/HCPCS: 36415; 71045; 80048; 80053; 83735; 83880; 84484; 85025; 87081; 93005; 93306; 94640; 94760; 97110; 97116; 97163; 97530; 99285; G0378; J1940; J2930; Q0163

== ENCOUNTER 2022-10-24 09:19 | Emergency (ER) | payer OTHER, MEDICARE ==
[~2022-10-24] VITALS: Ht 172.7 cm; Wt 64.1 kg
[2022-10-24] VITALS (8 sets, daily range): BP systolic 146–167; BP diastolic 67–90
[~2022-10-24 09:19] MED LIST changes: -CHLO25TA11 PO; +FURO20TA4 PO; +FURO40TA4 PO; -GABA-530 PO; +GABA300C PO; -HYDR71PA TP; +LOSA-416 PO; -[UNRECOGNIZED DRUG - CODE] TP; -tamsulosin capsule PO
[2022-10-24 10:08] LABS: CLARITY,URINE CLEAR (Clear); COLOR,URINE YELLOW (Yellow); GLUCOSE, URINE NEGATIVE (Neg); KETONES,URINE NEGATIVE (Neg); LEUKOCYTE ESTERASE ,URINE NEGATIVE (Neg); NITRITES, URINE NEGATIVE (Neg); OCCULT BLOOD,URINE NEGATIVE (Neg); PROTEIN,URINE TRACE mg/dl (Neg); UROBILINOGEN,URINE 0.2 E.U/dL (0.2-1.0)
[2022-10-24 10:11] LABS: UA COLLECTION TYPE CLN CATCH MIDSTREAM
[2022-10-24 10:18] LABS: COARSE GRANULAR CAST 0-3 /LPF (NEGATIVE); FINE GRANULAR CAST 0-3 /LPF (NEGATIVE); HYALINE CASTS 0-3 /LPF (NEGATIVE)
[2022-10-24 10:20] LABS: MUCUS STRANDS FEW /LPF (Neg); SQUAMOUS EPITHELIAL CELL,UR FEW /LPF (FEW)
[2022-10-24 10:21] LABS: BACTERIA,URINE FEW /HPF (Neg)
[2022-10-24 10:22] LABS: WBC,URINE 0-4 /HPF (0-4)
[2022-10-24 10:24] LABS: RBC,URINE 0-2 /HPF (0-2)
[2022-10-24 10:25] LABS: BASOPHILS % (AUTO) 0.3 % (0-1); EOSINOPHILS % (AUTO) 0.1 % (0-6); LYMPHOCYTES # (AUTO) 0.4 X10'3 (1.1-4.8); LYMPHOCYTES % (AUTO) 5.2 % (21-51); MEAN CORPUSCULAR HEMOGLOBIN 25.4 PG (27.0-31.0); MEAN CORPUSCULAR HGB CONC 30.3 g/dL (33.0-36.5); MEAN CORPUSCULAR VOLUME 83.7 FL (78-98); MEAN PLATELET VOLUME 7.8 FL (7.4-10.4); MONOCYTES # (AUTO) 0.8 X10'3 (0-0.9); MONOCYTES % (AUTO) 10.8 % (2-12); NEUTROPHILS # (AUTO) 6.4 X10'3 (1.8-7.7); NEUTROPHILS % (AUTO) 83.6 % (42-75); PLATELET COUNT 383 X10'3 (140-440); RED BLOOD COUNT 2.37 X10'6 (4.70-6.10); RED CELL DISTRIBUTION WIDTH 20.1 % (11.5-14.5); WHITE BLOOD COUNT 7.6 X10'3 (4.5-11.0)
[2022-10-24 10:32] LABS: ALANINE AMINOTRANSFERASE 19 U/L (12-78); ALBUMIN 2.1 G/DL (3.4-5.0); ALBUMIN/GLOBULIN RATIO 0.5 (1.1-1.5); ALKALINE PHOSPHATASE 112 IU/L (46-116); ANION GAP 0 (8-16); ASPARTATE AMINO TRANSFERASE 24 U/L (10-37); BILIRUBIN,TOTAL 0.3 MG/DL (0.1-1.0); BLOOD UREA NITROGEN 28 MG/DL (7-18); BUN/CREATININE RATIO 24.6 (10.0-20.0); CALCIUM 8.2 MG/DL (8.5-10.1); CHLORIDE 100 MMOL/L (99-107); CREATININE 1.14 MG/DL (0.60-1.10); GLUCOSE 111 MG/DL (70-104); MAGNESIUM 1.9 MG/DL (1.5-2.4); SODIUM 140 MMOL/L (135-145); TOTAL PROTEIN 6.3 G/DL (6.4-8.2); eGFR 61 ML/MIN
[2022-10-24 10:45] LABS: TOTAL CARBON DIOXIDE 40.2 MMOL/L (24-32)
[2022-10-24 11:05] LABS: HEMATOCRIT 19.8 % (42.0-52.0)
--- NOTE | 2022-10-24 12:33 | NUR ---
PHYSICIAN SIGNED BLOOD CONSENT ON THE PT'S SIGNATURE LINE (WRONG LINE); A RESULT, PT SIGNED ON THE PHYSICIAN'S LINE (WRONG LINE). BLOOD BANK ACCEPTED CONSENT WITH VERIFICATION OF SIGNATURES BY RN.
--- NOTE | 2022-10-24 15:15 | NUR ---
PT REQUESTING SOMETHING TO EAT. DR BOJORQUEZ NOTIFIED, PT GIVEN A TURKEY SANDWICH AND MILK.
--- NOTE | 2022-10-24 20:06 | NUR ---
iv dc'd pt being discharged. dressing applied
== END 2022-10-24 20:08 | disposition home or self-care (01) ==
LOC: ER 09:20
DX: D64.89 Other specified anemias (principal); I11.0 Hypertensive heart disease with heart failure; I50.9 Heart failure, unspecified; E78.00 Pure hypercholesterolemia, unspecified; J44.9 Chronic obstructive pulmonary disease, unspecified; K21.9 Gastro-esophageal reflux disease without esophagitis; E03.9 Hypothyroidism, unspecified; Z88.1 Allergy status to other antibiotic agents; Z91.041 Radiographic dye allergy status; Z88.8 Allergy status to other drugs, medicaments and biological substances
CPT/HCPCS: 36415; 36430; 80053; 81001; 83735; 85025; 86885; 86900; 86901; 86920; 99285; J7030; P9016; A4615; A6258